=== PATIENT | male | born 1950 | race Caucasian/White ===

== ENCOUNTER → 2018-04-30 | Outpatient (CLI) | payer MEDICARE ==
[~2018-04-30] MED LIST: ATROVENT I0.2 MG/1 M IH; BROVANA15 MCG/2 M IH; COMBIRESP IH; COZAAR 25MG25 MG/TAB PO; FLOMAX 0.40.4 MG/CAP PO; MASON NATURAL1200 MG PO; NORVASC 5MG5 MG/TAB; OXYGEN; PREVACID 30MG30 M1 PO; PULMICORT0.5 MG/2 M IH; RT SPIRIVA18 MCG IH; THEO-DUR 3300 MG/TAB PO
== END ==
LOC: ZCOL.LAB 16:33
DX: B37.0 Candidal stomatitis (principal)